=== PATIENT | female | born 1945 | race Caucasian/White ===

== ENCOUNTER 2016-11-08 18:19 | Emergency (ER) | payer OTHER ==
[~2016-11-08] VITALS: Ht 154.9 cm; Wt 60.1 kg
[~2016-11-08 18:19] MED LIST: NXM/40 PO
[2016-11-08 18:22] VITALS: TEMP 37; Ht 154.9 cm; Wt 60.1 kg
--- NOTE | 2016-11-08 19:01 | EMERGENCY ROOM VISIT NOTE ---
History Report prepared by Zander: Emily Ramírez Under the Supervision of: Dr. Yoni Lynn M.D. First contact with patient: 18:31 Chief Complaint: COUGH Stated Complaint: IRREGULAR EKG, REFERRED BY [facility] History of Present Illness The patient is a 71 year old female who presents to the Emergency Room with complaints of a constant cough that began one week ago. Yesterday the patient was coughing violently and was experiencing right-sided chest pain. The pain then radiated to her right flank. The patient reports that she thought that she pulled a muscle, so she put an ice pack on the area. When she went to replace the ice pack, she reported that the pain now radiated to underneath her right axillary. She states that she took aspirin yesterday to try to relive the pain. The patient reports that she went to [facility] today, where she was given four 81 mg aspirins and had an ECG taken. She reports that [facility] was concerned about part of her ECG. The patient notes that she also had an X-Ray taken, but states that it was negative. She states that she has a history of acid reflux. The patient associates 102 degree fever yesterday, and chills intermittently today. The patient reports that she recently traveled by plane from [place] to [place]. Source of History: patient Onset: one week ago Position: other (global) Quality: other (cough) Timing: constant Associated Symptoms: + chest pain, + chills, + fevers Review of Systems All systems have been listed, reviewed, and are negative other than those previously mentioned. Please see Additional Medical History Sheet. Past Medical & Surgical Medical Problems: (1) Acid reflux Family History Cancer Diabetes mellitus FH: seizures Gallbladder disease Heart disease Hypertension Social History Smoking Status: Never Smoker Alcohol Use: none Marital Status: Housing Status: lives with significant other Occupation Status: retired Current/Historical Medications Scheduled Colestipol Hcl (Colestipol Hcl), 1 GM PO DAILY Scheduled PRN Ranitidine Hcl (Zantac), 150 MG PO DAILY PRN for GI Upset Allergies Coded Allergies: Erythromycin (Verified Allergy, Unknown, 07/18/09) Penicillins (Verified Allergy, Unknown, 07/18/09) Sulfa Drugs (Verified Allergy, Unknown, 07/18/09) Physical Exam Vital Signs Date Time Temp Pulse Resp B/P Pulse Ox O2 Delivery O2 Flow Rate FiO2 11/08/16 19:50 88 20 132/67 98 11/08/16 18:22 37.0 102 18 118/62 95 Room Air Physical Exam GENERAL: Patient awake, alert, oriented x 3. Patient follows commands. Patient does not appear toxic. Patient is adequately hydrated and well- nourished. SKIN: No erythema, pallor, cyanosis or rash HEENT: Normal head, pupils equal, reactive to light and accommodation. Increased cerumen left ear. Oral cavity and posterior pharynx appear normal. Neck: Without adenopathy, no neck vein distention. CHEST WALL: Marked tenderness 5-6th ribs wrapping around to mid axillary line to the posterior, palpation reproduces pain complaining of. LUNGS: Clear to auscultation. No wheezes, no rales, no rhonchi. HEART: No murmurs. No gallops. No rubs ABDOMEN: Soft nontender. EXTREMITIES: No signs of trauma. No pedal or pretibial edema. No calf or thigh tenderness. NEUROLOGIC: Cranial nerves II-XII within normal limits. No gross motor sensory function deficits. Medical Decision & Procedures Medications Administered Medications (Trade) Dose Ordered Sig/Trina Route Start Time Stop Time Status Last Admin Dose Admin Albuterol (Ventolin Hfa Inhaler) 2 puffs NOW STAT INH 11/08/16 19:02 11/08/16 19:03 DC 11/08/16 19:02 2 PUFFS ED Course 183: Past medical records reviewed. The patient was evaluated in room A9. A complete history and physical examination was performed. 1852: I reviewed x-rays from [facility]. 1854: I reevaluated the patient and she is resting comfortably. I discussed the exam findings with her and I discussed the treatment plan. She verbalized complete understanding and agreement. She is ready to go home. 1901: Ordered Albuterol 2 puffs INH. Medical Decision Nurses notes reviewed. Medical history sheet reviewed. Differential diagnosis includes but is not limited to: pneumonia, rib fracture, pulled muscle, bronchitis. The patient is here with a 7-10 day cough. She also has pain in the right side of her chest. The patient was seen at [facility] and sent here for a questionable EKG abnormality. EKG was reviewed which revealed a normal sinus rhythm with a slight right ventricular conduction delay without ectopy. That EKG was compared to prior EKG and no changes were found. The patient also has point tenderness over the fifth sixth ribs along the mid axillary line extending posteriorly. This is consistent with a possible rib fracture or at least muscle strain. Chest x-ray from [facility] was also reviewed. No acute infiltrates, pneumothorax or rib fractures were seen. The patient does not need any blood work at this time. The patient was given an albuterol inhaler for relief of the cough. The patient does not one anything for pain. I do not believe the patient requires antibiotics. Blood pressure Screening: Patient was found to have normal blood pressure on screening and does not require follow up. Medication Reconciliation: I attest that I have personally reviewed the patient' s current medication list. Impression Primary Impression: Acute bronchitis Additional Impression: Acute chest wall pain Scribe Attestation The scribe's documentation has been prepared under my direction and personally reviewed by me in its entirety. I confirm that the note above accurately reflects all work, treatment, procedures, and medical decision making performed by me. Departure Information Dispostion Home / Self-Care Referrals No Doctor, Assigned (PCP) Forms HOME CARE DOCUMENTATION FORM, IMPORTANT VISIT INFORMATION Patient Instructions My [facility] Additional Instructions 2 puffs of the inhaler every 4 hours as needed for cough. Tylenol as needed for pain. Follow-up with your family physician within the next 2 weeks. Continue all of your current medications as prescribed. Problem Qualifiers
[2016-11-08] MEDS ORDERED: ALBUTEROL HFA 8 GM INHALER INH STA (19:02)
[2016-11-08 19:50] VITALS: BP 132/67; PULSE 88; O2SAT 98
== END 2016-11-08 19:52 | disposition home or self-care (01) ==
LOC: C.EDB 18:21 → C.EDA 19:52
DX: J20.9 Acute bronchitis, unspecified (principal); R07.89 Other chest pain; K21.9 Gastro-esophageal reflux disease without esophagitis; Z79.899 Other long term (current) drug therapy; Z82.0 Family history of epilepsy and other diseases of the nervous system; Z82.49 Family history of ischemic heart disease and other diseases of the circulatory system; Z83.3 Family history of diabetes mellitus; Z83.79 Family history of other diseases of the digestive system

== ENCOUNTER 2016-11-13 14:34 | Emergency (ER) | payer OTHER ==
[~2016-11-13] VITALS: Ht 154.9 cm; Wt 62.1 kg
[2016-11-13 14:39] VITALS: TEMP 36.4; Ht 154.9 cm; Wt 62.1 kg
--- NOTE | 2016-11-13 16:11 | EMERGENCY ROOM VISIT NOTE ---
History Report prepared by Zander: Randa Amato Under the Supervision of: Dr. Mariel Leon D.O. First contact with patient: 15:42 Chief Complaint: COUGH Stated Complaint: REEVAL FOR COUGHING Nursing Triage Summary: cough since 11/01 when came home from [place], mucus was green but now clear. "constantly producing mucus" this am was first time felt like she had to blow nose and a clot came out. Went to [facility] on Tuesday, took xray and ekg was here Tuesday. Was given an albuterol inhaler which she was unable to use because it burned her throat, was given doxycycline which she has used for 3 days. Became concerned about antibiotic because she read the pamphlet. History of Present Illness The patient is a 71 year old female who presents to the Emergency Room with complaints of a constant cough beginning 2 weeks ago. The patient states that she has had a persistent cough since she got back from [place] 2 weeks ago. She reports that she went to [facility] 5 days ago for right sided chest pain and they sent her here for an abnormal EKG. After being seen here in the ED it was determined that her EKG was unchanged from her previous and that her pain was from her ribs from coughing. The patient reports that she was given an inhaler but she did not continue to use it because it burned her throat. She complains today of continued right sided rib pain, eye watering, headache, and head swelling. She denies any current chest pain. The patient states that she got a call from [facility] and she asked them for antibiotics and she has been taking Doxycycline for 3 days. She notes that she is not sure that she wants to continue Doxycycline because she is concerned that her eyes are watery and slightly blurry and her head is swelling from side effects from the drug. The patient states that she has a history of allergies during this time of year. She notes that talking worsens her symptoms. Source of History: patient Onset: 2 weeks ago Position: other (global) Quality: other (cough) Timing: constant Modifying Factors (Worsening): other (talking) Associated Symptoms: + headache, No chest pain Note: She complains today of continued right sided rib pain, eye watering, and head swelling. Review of Systems See HPI for pertinent positives & negatives. A total of 10 systems reviewed and were otherwise negative. Past Medical & Surgical Medical Problems: (1) Acid reflux Family History Cancer Diabetes mellitus FH: seizures Gallbladder disease Heart disease Hypertension Social History Smoking Status: Never Smoker Alcohol Use: none Marital Status: Housing Status: lives with significant other Occupation Status: retired Current/Historical Medications Scheduled Colestipol Hcl (Colestipol Hcl), 1 GM PO DAILY Guaifenesin-Codeine (Guaifenesin/Codeine), 5-10 ML PO HS Levofloxacin (Levaquin), 750 MG PO DAILY Scheduled PRN Benzonatate (Tessalon Perles), 1 CAP PO TID PRN for Cough Ranitidine Hcl (Zantac), 150 MG PO DAILY PRN for GI Upset Allergies Coded Allergies: Erythromycin (Verified Allergy, Unknown, 11/13/16) Penicillins (Verified Allergy, Unknown, 11/13/16) Sulfa Drugs (Verified Allergy, Unknown, 11/13/16) Physical Exam Vital Signs Date Time Temp Pulse Resp B/P (MAP) Pulse Ox O2 Delivery O2 Flow Rate FiO2 11/13/16 19:59 80 20 97 11/13/16 18:46 83 18 124/56 97 Room Air 11/13/16 16:58 76 16 156/54 100 Room Air 11/13/16 15:27 98 Room Air 11/13/16 14:39 36.4 85 16 128/63 99 Room Air Physical Exam GENERAL: alert, well appearing, well nourished, no distress, non-toxic, dry cough during exam EYE EXAM: normal conjunctiva, PERRL and EOM's grossly intact OROPHARYNX: no exudate, no erythema, lips, buccal mucosa, and tongue normal and mucous membranes are moist NECK: supple, no nuchal rigidity, no adenopathy, non-tender LUNGS: Clear to auscultation. Normal chest wall mechanics HEART: no murmurs, S1 normal and S2 normal ABDOMEN: abdomen soft, non-tender, normo-active bowel sounds, no masses, no rebound or guarding. BACK: Back is symmetrical on inspection and there is no deformity, no midline tenderness, no CVA tenderness. SKIN: no rashes and no bruising UPPER EXTREMITIES: upper extremities are grossly normal. LOWER EXTREMITIES: No pitting edema. NEURO EXAM: Normal sensorium, cranial nerves II-XII grossly intact, normal speech, no gross weakness of arms, no gross weakness of legs. Medical Decision & Procedures ER Provider Diagnostic Interpretation: Radiology results have been interpreted by the radiologist and reviewed by me. CT ANGIOGRAM OF THE CHEST TECHNIQUE: Following the IV administration of 99 cc of Optiray 320, CT angiogram of the chest was performed from the upper abdomen to the thoracic inlet utilizing the pulmonary embolus protocol. Images are reviewed in the axial, sagittal, and coronal planes. 3-D MIPS images are created and assessed. IV contrast was administered without complication. CT DOSE: 211.68 mGy.cm FINDINGS: Thyroid: Imaged portions of the thyroid gland are normal in size and attenuation. A subcentimeter low-density nodule is seen in the left lobe. Thoracic aorta: There is mild atherosclerotic calcification of the thoracic aorta, which is normal in caliber and demonstrates standard 3-vessel arch anatomy. No dissection is seen. Pulmonary vasculature: The pulmonary trunk is normal in caliber. There are no filling defects identified in main, lobar, or segmental pulmonary branches to suggest pulmonary embolus. Heart: The heart is normal in size and configuration, and without pericardial effusion. Lungs and pleural spaces: There is dense airspace consolidation identified in the paramediastinal right upper lobe. No pleural effusion is identified. The left lung appears clear. Scarring versus atelectasis is present both lung bases. The trachea and central airways are clear. Mediastinum: There is no mediastinal lymphadenopathy. Cary: Clear. Axillae: There is no axillary lymphadenopathy. Upper abdomen: Cholecystectomy clips are noted. Partially visualized upper abdominal viscera is within normal limits. Skeletal structures: The skeletal structures are osteopenic. Mild degenerative change is noted throughout the thoracic spine. No lytic or blastic bony lesions are seen. IMPRESSION: 1. There is no evidence of pulmonary embolus in the main, lobar, or segmental pulmonary arteries. 2. There is dense airspace consolidation identified in the paramediastinal right upper lobe. This likely represents pneumonia. Clinical correlation will be required. Follow-up chest CT in 3 months time is recommended to document resolution. Electronically signed by: Radu Rajan M.D. 11/13/2016 6:40 PM Dictated Date/Time: 11/13/2016 6:33 PM SINGLE VIEW CHEST FINDINGS: An AP, portable, upright chest radiograph is compared to study dated . The examination is degraded by portable technique and patient rotation. The cardiomediastinal silhouette is unremarkable. There is mild atherosclerotic calcification of the thoracic aorta. Prominence of the central pulmonary arteries suggests pulmonary artery hypertension. Chronic interstitial thickening is similar to previous. No airspace consolidation, large pleural effusion, or pneumothorax is seen. The skeletal structures are osteopenic. The bony thorax is grossly intact. IMPRESSION: No acute cardiopulmonary abnormality. Electronically signed by: Radu Rajan M.D. 11/13/2016 5:25 PM Dictated Date/Time: 11/13/2016 5:23 PM Laboratory Results 11/13/16 16:44 Red Blood Count 3.82, Mean Corpuscular Volume 95.5, Mean Corpuscular Hemoglobin 32.7, Mean Corpuscular Hemoglobin Concent 34.2, Mean Platelet Volume 9.1, Neutrophils (%) (Auto) 61.3, Lymphocytes (%) (Auto) 29.4, Monocytes (%) (Auto) 7.4, Eosinophils (%) (Auto) 1.2, Basophils (%) (Auto) 0.2, Neutrophils # (Auto) 8.02, Lymphocytes # (Auto) 3.85, Monocytes # (Auto) 0.97, Eosinophils # (Auto) 0.16, Basophils # (Auto) 0.03 11/13/16 16:44 Test 11/13/16 16:44 White Blood Count 13.10 K/uL (4.8-10.8) Red Blood Count 3.82 M/uL (4.2-5.4) Hemoglobin 12.5 g/dL (12.0-16.0) Hematocrit 36.5 % (37-47) Mean Corpuscular Volume 95.5 fL (80-100) Mean Corpuscular Hemoglobin 32.7 pg (25-34) Mean Corpuscular Hemoglobin Concent 34.2 g/dl (32-36) Platelet Count 407 K/uL (130-400) Mean Platelet Volume 9.1 fL (7.4-10.4) Neutrophils (%) (Auto) 61.3 % Lymphocytes (%) (Auto) 29.4 % Monocytes (%) (Auto) 7.4 % Eosinophils (%) (Auto) 1.2 % Basophils (%) (Auto) 0.2 % Neutrophils # (Auto) 8.02 K/uL (1.4-6.5) Lymphocytes # (Auto) 3.85 K/uL (1.2-3.4) Monocytes # (Auto) 0.97 K/uL (0.11-0.59) Eosinophils # (Auto) 0.16 K/uL (0-0.5) Basophils # (Auto) 0.03 K/uL (0-0.2) RDW Standard Deviation 43.9 fL (36.4-46.3) RDW Coefficient of Variation 12.6 % (11.5-14.5) Immature Granulocyte % (Auto) 0.5 % Immature Granulocyte # (Auto) 0.07 K/uL (0.00-0.02) D-Dimer 1660 ug/L FEU (0-500) Anion Gap 9.0 mmol/L (3-11) Est Creatinine Clear Calc Drug Dose 56.1 ml/min Estimated GFR () 87.2 Estimated GFR (Non- 75.2 BUN/Creatinine Ratio 14.3 (10-20) Calcium Level 9.4 mg/dl (8.5-10.1) Troponin I < 0.015 ng/ml (0-0.045) Pro-B-Type Natriuretic Peptide 282 pg/ml (0-900) Laboratory results per my review. Medications Administered Medications (Trade) Dose Ordered Sig/Trina Route Start Time Stop Time Status Last Admin Dose Admin Benzonatate (Tessalon Perles Cap) 100 mg NOW ONCE PO 11/13/16 16:15 11/13/16 16:16 DC 11/13/16 16:55 100 MG Dexamethasone (Decadron Conc Soln) 10 mg NOW STAT PO 11/13/16 16:28 11/13/16 16:29 DC 11/13/16 16:56 10 MG Levofloxacin (Levaquin Tab) 750 mg NOW STAT PO 11/13/16 18:48 11/13/16 18:51 DC 11/13/16 19:34 750 MG Hydrocodone Bit/ Homatropine Methylb (Hycodan Elix Homepack 5/1.5MG/ 5ML) 1 homepack UD ONCE PO 11/13/16 19:45 11/13/16 19:46 DC 11/13/16 19:53 1 HOMEPACK ED Course 1542: The patient was evaluated in room A9. A complete history and physical exam was performed. 1615: Benzonatate 100mg PO. 1628: Decadron Conc Soln 10mg PO. 1814: I reevaluated and updated the patient. 1847: Benadryl Inj 12.5mg IV, Levofloxacin 750mg PO. 1904: Upon reevaluation, the patient is feeling better. I discussed the findings and the treatment plan with the patient. She verbalizes agreement and understanding. The patient was discharged home. Medical Decision Differential diagnosis: Etiologies such as infections, reactive airway disease, pneumonia, pneumothorax , COPD, CHF, cardiac ischemia, pulmonary embolism, musculoskeletal, gastrointestinal, as well as others were entertained. Medication Reconciliation: I attest that I have personally reviewed the patient' s current medication list. Blood pressure screening: Patient was found to have an elevated blood pressure and was referred to their primary doctor for recheck and further treatment. Pt well appearing despite complaints. Several weeks of symptoms, not improving. Pt feels having adr's to doxycycline. Discussed other allergies. No hypoxia, no increased WOB, mild leukocytosis but reassuring VS. Doubt bacteremia/sepsis. Asked cyanide case hardener to help pt establish local PCP for f/u. Discussed sx to watch/return for, pt has home MDI/spacer. No other hx of pulmonary pathology. Doubt cardiac etiology. STable VS in the ER. Mild hypertension noted, discussed f/u with PCP. Doubt contributing to HPI this visit. CURB 65 score 1 - low risk Impression Primary Impression: Pneumonia Additional Impression: Cough Scribe Attestation The scribe's documentation has been prepared under my direction and personally reviewed by me in its entirety. I confirm that the note above accurately reflects all work, treatment, procedures, and medical decision making performed by me. Departure Information Dispostion Home / Self-Care Prescriptions Guaifenesin-Codeine (GUAIFENESIN/CODEINE) 1 Muriel Muriel 5-10 ML PO HS, #1 BTL Prov: Mariel Leon, DO 11/13/16 Benzonatate (Tessalon Perles) 100 Mg Cap 1 CAP PO TID Y for Cough, #20 CAP Prov: Mariel Leon, DO 11/13/16 Levofloxacin (Levaquin) 500 Mg Tab 750 MG PO DAILY for 5 Days, #8 TAB Prov: Mariel Leon, DO 6/3/17 Referrals No Doctor, Assigned (PCP) Patient Instructions My [facility] Additional Instructions Please try to establish a local family doctor. Please take the antibiotics as prescribed. You may use the inhaler, 2 puffs up to every 4 hours as needed for frequent episodes of coughing, or trouble breathing. Please use the cough medications as prescribed. Please drink plenty of water and stay well- hydrated. If you develop any worsening cough, noticed blood in her sputum, have a harder time breathing, develop chest pain or pressure, dizziness, vomiting, fevers, or any other new concerns, please return the emergency room. Problem Qualifiers Primary Impression: Pneumonia Pneumonia type: due to unspecified organism Laterality: right Lung location : upper lobe of lung Qualified Codes: J18.1 - Lobar pneumonia, unspecified organism
[2016-11-13] MEDS ORDERED: DEXAMETHASONE CONC 1 MG/ML 30 ML PO STA ×2 (16:13→16:28)
[2016-11-13] MEDS ORDERED: BENZONATATE 100MG CAP PO ONE (16:15)
[2016-11-13 16:55] LABS: BASO % 0.2 %; BASO ABS # 0.03 K/uL (0-0.2); COMPLETE YES; EOS % 1.2 %; HEMATOCRIT 36.5 % (37-47); IG% 0.5 %; LYMPH % 29.4 %; LYMPH ABS # 3.85 K/uL (1.2-3.4); MEAN CELL VOLUME 95.5 fL (80-100); MEAN CORPUSCULAR HEMOGLOBIN 32.7 pg (25-34); MEAN CORPUSCULAR HGB CONC 34.2 g/dl (32-36); MEAN PLATELET VOLUME 9.1 fL (7.4-10.4); MONO % 7.4 %; NEUT % 61.3 %; PLATELET COUNT 407 K/uL (130-400); RED BLOOD COUNT 3.82 M/uL (4.2-5.4)
[2016-11-13 17:12] LABS: BLOOD UREA NITROGEN 11 mg/dl (7-18); BUN/CREATININE RATIO 14.3 (10-20); CALCIUM 9.4 mg/dl (8.5-10.1); CARBON DIOXIDE 31 mmol/L (21-32); CHLORIDE 101 mmol/L (98-107); GLUCOSE 94 mg/dl (70-99); POTASSIUM 3.2 mmol/L (3.5-5.1); SODIUM 141 mmol/L (136-145)
--- NOTE | 2016-11-13 17:26 | DIAGNOSTIC IMAGING REPORT ---
SINGLE VIEW CHEST CLINICAL HISTORY: Right-sided chest pain. FINDINGS: An AP, portable, upright chest radiograph is compared to study dated . The examination is degraded by portable technique and patient rotation. The cardiomediastinal silhouette is unremarkable. There is mild atherosclerotic calcification of the thoracic aorta. Prominence of the central pulmonary arteries suggests pulmonary artery hypertension. Chronic interstitial thickening is similar to previous. No airspace consolidation, large pleural effusion, or pneumothorax is seen. The skeletal structures are osteopenic. The bony thorax is grossly intact. IMPRESSION: No acute cardiopulmonary abnormality. Electronically signed by: Radu Rajan M.D. 11/13/2016 5:25 PM Dictated Date/Time: 11/13/2016 5:23 PM
[2016-11-13] MEDS ORDERED: SODIUM CHLORIDE 0.9% 1000ML 1,000 ML IV STA (18:20)
--- NOTE | 2016-11-13 18:41 | DIAGNOSTIC IMAGING REPORT ---
CT ANGIOGRAM OF THE CHEST CLINICAL HISTORY: Cough and dyspnea. COMPARISON STUDY: Chest x-ray dated 11/13/2016. Chest CT dated 07/20/09. TECHNIQUE: Following the IV administration of 99 cc of Optiray 320, CT angiogram of the chest was performed from the upper abdomen to the thoracic inlet utilizing the pulmonary embolus protocol. Images are reviewed in the axial, sagittal, and coronal planes. 3-D MIPS images are created and assessed. IV contrast was administered without complication. CT DOSE: 211.68 mGy.cm FINDINGS: Thyroid: Imaged portions of the thyroid gland are normal in size and attenuation. A subcentimeter low-density nodule is seen in the left lobe. Thoracic aorta: There is mild atherosclerotic calcification of the thoracic aorta, which is normal in caliber and demonstrates standard 3-vessel arch anatomy. No dissection is seen. Pulmonary vasculature: The pulmonary trunk is normal in caliber. There are no filling defects identified in main, lobar, or segmental pulmonary branches to suggest pulmonary embolus. Heart: The heart is normal in size and configuration, and without pericardial effusion. Lungs and pleural spaces: There is dense airspace consolidation identified in the paramediastinal right upper lobe. No pleural effusion is identified. The left lung appears clear. Scarring versus atelectasis is present both lung bases. The trachea and central airways are clear. Mediastinum: There is no mediastinal lymphadenopathy. Cary: Clear. Axillae: There is no axillary lymphadenopathy. Upper abdomen: Cholecystectomy clips are noted. Partially visualized upper abdominal viscera is within normal limits. Skeletal structures: The skeletal structures are osteopenic. Mild degenerative change is noted throughout the thoracic spine. No lytic or blastic bony lesions are seen. IMPRESSION: 1. There is no evidence of pulmonary embolus in the main, lobar, or segmental pulmonary arteries. 2. There is dense airspace consolidation identified in the paramediastinal right upper lobe. This likely represents pneumonia. Clinical correlation will be required. Follow-up chest CT in 3 months time is recommended to document resolution. Electronically signed by: Radu Rajan M.D. 11/13/2016 6:40 PM Dictated Date/Time: 11/13/2016 6:33 PM
[2016-11-13] MEDS ORDERED: OPTIRAY 320 IV PRN (18:45)
[2016-11-13 18:46] VITALS: BP 124/56
[2016-11-13] MEDS ORDERED: LEVOFLOXACIN 750 MG TAB PO STA (18:48)
[2016-11-13] MEDS ORDERED: DiphenhydrAMINE HCL 50 MG/ML VIAL IV STA (18:48)
[2016-11-13] MEDS ORDERED: LEVO-366 PO (19:13)
[2016-11-13] MEDS ORDERED: BENZ100C84 PO (19:13)
[2016-11-13] MEDS ORDERED: GUAI100S6 PO (19:13)
[2016-11-13] MEDS ORDERED: COLE1TAB5 PO (19:38)
[2016-11-13] MEDS ORDERED: RANI150T3 PO (19:38)
--- NOTE | 2016-11-13 19:40 | EMERGENCY ROOM VISIT NOTE ---
ED Visit Note The patient had been discharged but it was then realized that her prescriptions could not be filled at her pharmacy. It had become too late in the day. Patient was ordered for a Hycodan cough syrup home pack to use in the interim for her cough complaint. She can fill her prescriptions tomorrow. She was discharged home.
[2016-11-13] MEDS ORDERED: HYCODAN 60ML BOTTLE HOMEPACK PO ONE (19:45)
[2016-11-13 19:59] VITALS: PULSE 80; O2SAT 97
== END 2016-11-13 20:00 | disposition home or self-care (01) ==
LOC: C.EDB 14:35 → C.EDA 20:00
DX: J18.9 Pneumonia, unspecified organism (principal); K21.9 Gastro-esophageal reflux disease without esophagitis; Z88.0 Allergy status to penicillin; Z88.2 Allergy status to sulfonamides; Z88.3 Allergy status to other anti-infective agents; Z80.9 Family history of malignant neoplasm, unspecified; Z83.3 Family history of diabetes mellitus; Z82.0 Family history of epilepsy and other diseases of the nervous system; Z83.79 Family history of other diseases of the digestive system; Z82.49 Family history of ischemic heart disease and other diseases of the circulatory system

== ENCOUNTER → 2016-11-26 | Outpatient (CLI) | payer OTHER ==
[~2016-11-26] MED LIST changes: +BENZ100C84 PO; +COLE1TAB5 PO; +GUAI100S6 PO; -NXM/40 PO; +RANI150T3 PO
[2016-11-26 19:14] LABS: THYROID STIMULATING HORMONE 1.5 uIu/ml (0.300-4.500)
== END | disposition home or self-care (01) ==
LOC: C.LAB 18:22
PROVIDERS: ATTEND Internal Medicine Endocrinology, Diabetes & Metabolism
DX: E04.2 Nontoxic multinodular goiter (principal)

== ENCOUNTER 2017-03-07 11:58 | Emergency (ER) | payer OTHER ==
[~2017-03-07] VITALS: Ht 154.9 cm; Wt 62.0 kg
[2017-03-07 12:08] VITALS: TEMP 36.5
[2017-03-07 12:40] VITALS: Ht 154.9 cm; Wt 62.0 kg
[2017-03-07 12:58] VITALS: O2SAT 97
[2017-03-07 13:33] LABS: BASO % 0.2 %; BASO ABS # 0.02 K/uL (0-0.2); COMPLETE YES; EOS % 0.5 %; IG% 0.3 %; LYMPH % 22.4 %; LYMPH ABS # 2.06 K/uL (1.2-3.4); MEAN CELL VOLUME 95.2 fL (80-100); MEAN CORPUSCULAR HEMOGLOBIN 32.4 pg (25-34); MEAN PLATELET VOLUME 10.4 fL (7.4-10.4); MONO % 9.1 %; NEUT % 67.5 %; PLATELET COUNT 265 K/uL (130-400); RED BLOOD COUNT 4.41 M/uL (4.2-5.4); WHITE BLOOD COUNT 9.21 K/uL (4.8-10.8)
[2017-03-07 13:45] LABS: INR 0.9 (0.9-1.1)
--- NOTE | 2017-03-07 13:54 | DIAGNOSTIC IMAGING REPORT ---
LEFT LOWER EXTREMITY VENOUS DOPPLER HISTORY: Left leg pain. COMPARISON STUDY: None. FINDINGS: There is normal compressibility, flow, and augmentation within the left lower extremity deep venous system. IMPRESSION: No DVT within the left lower extremity. Electronically signed by: Edvin Paris M.D. 03/07/2017 1:53 PM Dictated Date/Time: 03/07/2017 1:52 PM
[2017-03-07 13:56] LABS: CREATININE 0.89 mg/dl (0.60-1.20); POTASSIUM 3.6 mmol/L (3.5-5.1)
[2017-03-07 13:59] LABS: ALB/GLOB RATIO 1.1 (0.9-2)
--- NOTE | 2017-03-07 13:59 | DIAGNOSTIC IMAGING REPORT ---
LEFT KNEE 2 VIEWS HISTORY: left lateral knee pain, no trauma COMPARISON: None. FINDINGS: There is no fracture or dislocation. Soft tissues are unremarkable. No radiopaque foreign bodies. No knee effusion. IMPRESSION: No fractures. Electronically signed by: Edvin Paris M.D. 03/07/2017 1:58 PM Dictated Date/Time: 03/07/2017 1:58 PM
[2017-03-07 14:08] VITALS: BP 116/56
[2017-03-07 14:44] VITALS: PULSE 76; O2SAT 98
--- NOTE | 2017-03-07 15:05 | EMERGENCY ROOM VISIT NOTE ---
History Report prepared by Zander: Bárbara Olivares Under the Supervision of: Dr. Dilip Cordero M.D. First contact with patient: 12:31 Chief Complaint: LEG PAIN,LEG INJURY Stated Complaint: LEFT LEG PAIN BEHIND KNEE History of Present Illness The patient is a 71 year old female who presents to the Emergency Room with complaints of persistent left leg pain that began three days ago. She currently rates her discomfort as a 10/10 in severity. The patient reports pain to touch the area and she states that her pain began suddenly. She reports pain radiating from her popliteal fossa down her left calf. The patient denies any trauma. She reports a history of arthritis. The patient denies any personal or family history of blood clots. She does note that her veins burst easily. The patient reports worsened pain with movement. She states that she has tried taken Aleve without relief of her symptoms. Pt denies prolonged travel, recent surgery or immobilization. Pt denies LOC, headache, fevers, chills, diaphoresis, visual changes, neck pain, chest pain, breathing difficulties, nausea, vomiting, abdominal pain, back pain, melena, hematochezia, urinary symptoms, numbness, weakness, lymphadenopathy, rash, or other complaints. Source of History: patient Onset: three days ago Position: leg (left) Symptom Intensity: 10/10 Quality: other (radiating) Timing: other (persistent) Modifying Factors (Worsening): movement Review of Systems See HPI for pertinent positives and negatives. A total of ten systems were reviewed and were otherwise negative. Past Medical & Surgical Medical Problems: (1) Acid reflux Surgical Problems: (1) S/P appendectomy (2) S/P cholecystectomy Family History Cancer Diabetes mellitus FH: seizures Gallbladder disease Heart disease Hypertension Social History Smoking Status: Never Smoker Alcohol Use: none Marital Status: Housing Status: lives with significant other Occupation Status: retired Current/Historical Medications Scheduled Colestipol Hcl (Colestipol Hcl), 1 GM PO DAILY Allergies Coded Allergies: Erythromycin (Verified Allergy, Unknown, 11/13/16) Penicillins (Verified Allergy, Unknown, 11/13/16) Sulfa Drugs (Verified Allergy, Unknown, 11/13/16) Doxycycline (Unverified Adverse Reaction, Unknown, FELT FAINT, DIZZY, SICK , 03/07/17) Levofloxacin (Unverified Adverse Reaction, Unknown, DIZZY, COULDN'T SEE OUT OF LEFT EYE, FELT SICK, 03/07/17) Physical Exam Vital Signs Date Time Temp Pulse Resp B/P (MAP) Pulse Ox O2 Delivery O2 Flow Rate FiO2 03/07/17 14:44 76 98 03/07/17 14:08 78 16 116/56 98 Room Air 03/07/17 13:02 82 03/07/17 12:58 97 Room Air 03/07/17 12:08 36.5 98 20 134/64 97 Room Air Physical Exam GENERAL: Awake, alert, well-appearing, in no distress HENT: Normocephalic, atraumatic. Oropharynx unremarkable. EYES: Normal conjunctiva. Sclera non-icteric. NECK: Supple. No nuchal rigidity. FROM. No JVD. RESPIRATORY: Clear to auscultation. CARDIAC: Regular rate, normal rhythm. Extremities warm and well perfused. Pulses equal. ABDOMEN: Soft, non-distended. No tenderness to palpation. No rebound or guarding. No masses. RECTAL: Deferred. MUSCULOSKELETAL: Chest examination reveals no tenderness. The back is symmetrical on inspection without obvious abnormality. There is no CVA tenderness to palpation. No joint edema. LOWER EXTREMITIES: Tenderness to posterior and lateral aspects of the left knee. No swelling, no erythema, remainder of the left leg examines normally. Calves are equal size bilaterally and non-tender. No edema. No discoloration. NEURO: Normal sensorium. No sensory or motor deficits noted. SKIN: No rash or jaundice noted. Medical Decision & Procedures ER Provider Diagnostic Interpretation: Radiology results as stated below per my review and radiologist interpretation: LEFT LOWER EXTREMITY VENOUS DOPPLER HISTORY: Left leg pain. COMPARISON STUDY: None. FINDINGS: There is normal compressibility, flow, and augmentation within the left lower extremity deep venous system. IMPRESSION: No DVT within the left lower extremity. Electronically signed by: Edvin Paris M.D. 03/07/2017 1:53 PM Dictated Date/Time: 03/07/2017 1:52 PM LEFT KNEE 2 VIEWS HISTORY: left lateral knee pain, no trauma COMPARISON: None. FINDINGS: There is no fracture or dislocation. Soft tissues are unremarkable. No radiopaque foreign bodies. No knee effusion. IMPRESSION: No fractures. Electronically signed by: Edvin Paris M.D. 03/07/2017 1:58 PM Dictated Date/Time: 03/07/2017 1:58 PM Laboratory Results 03/07/17 12:54 Red Blood Count 4.41, Mean Corpuscular Volume 95.2, Mean Corpuscular Hemoglobin 32.4, Mean Corpuscular Hemoglobin Concent 34.0, Mean Platelet Volume 10.4, Neutrophils (%) (Auto) 67.5, Lymphocytes (%) (Auto) 22.4, Monocytes (%) (Auto) 9.1, Eosinophils (%) (Auto) 0.5, Basophils (%) (Auto) 0.2, Neutrophils # (Auto) 6.21, Lymphocytes # (Auto) 2.06, Monocytes # (Auto) 0.84, Eosinophils # (Auto) 0.05, Basophils # (Auto) 0.02 03/07/17 12:54 Test 03/07/17 12:54 White Blood Count 9.21 K/uL (4.8-10.8) Red Blood Count 4.41 M/uL (4.2-5.4) Hemoglobin 14.3 g/dL (12.0-16.0) Hematocrit 42.0 % (37-47) Mean Corpuscular Volume 95.2 fL (80-100) Mean Corpuscular Hemoglobin 32.4 pg (25-34) Mean Corpuscular Hemoglobin Concent 34.0 g/dl (32-36) Platelet Count 265 K/uL (130-400) Mean Platelet Volume 10.4 fL (7.4-10.4) Neutrophils (%) (Auto) 67.5 % Lymphocytes (%) (Auto) 22.4 % Monocytes (%) (Auto) 9.1 % Eosinophils (%) (Auto) 0.5 % Basophils (%) (Auto) 0.2 % Neutrophils # (Auto) 6.21 K/uL (1.4-6.5) Lymphocytes # (Auto) 2.06 K/uL (1.2-3.4) Monocytes # (Auto) 0.84 K/uL (0.11-0.59) Eosinophils # (Auto) 0.05 K/uL (0-0.5) Basophils # (Auto) 0.02 K/uL (0-0.2) RDW Standard Deviation 43.6 fL (36.4-46.3) RDW Coefficient of Variation 12.6 % (11.5-14.5) Immature Granulocyte % (Auto) 0.3 % Immature Granulocyte # (Auto) 0.03 K/uL (0.00-0.02) Prothrombin Time 10.0 SECONDS (9.0-12.0) Prothromb Time International Ratio 0.9 (0.9-1.1) Activated Partial Thromboplast Time 26.0 SECONDS (21.0-31.0) Partial Thromboplastin Ratio 1.0 Anion Gap 7.0 mmol/L (3-11) Est Creatinine Clear Calc Drug Dose 50.3 ml/min Estimated GFR () 76.6 Estimated GFR (Non- 66.1 BUN/Creatinine Ratio 15.0 (10-20) Calcium Level 9.0 mg/dl (8.5-10.1) Total Bilirubin 0.5 mg/dl (0.2-1) Aspartate Amino Transf (AST/SGOT) 13 U/L (15-37) Alanine Aminotransferase (ALT/SGPT) 17 U/L (12-78) Alkaline Phosphatase 96 U/L (45-117) Total Protein 7.4 gm/dl (6.4-8.2) Albumin 3.9 gm/dl (3.4-5.0) Globulin 3.5 gm/dl (2.5-4.0) Albumin/Globulin Ratio 1.1 (0.9-2) Laboratory results reviewed by mi ED Course 1237: The patient was evaluated in room B5. A complete history and physical exam was performed by the medical student. 1306: The patient was evaluated in room B5. A complete history and physical exam was performed. 1417: I reevaluated the patient and she is resting comfortably. I discussed the exam findings with her and I discussed the treatment plan. She verbalized complete understanding and agreement. She is ready to go home. Medical Decision Triage Nursing notes reviewed and agree them. The patient's history was concerning for swelling and pain in the leg. Differential diagnosis: Etiologies such as DVT, Gupta's cyst, arthritis, joint effusion, infection, trauma, muscular, idiopathic, as well as others were entertained.. Physical examination: The physical examination revealed no signs of infection. Neurovascularly intact. No ligamentous instability. Unable to fully assess meniscus secondary to discomfort with range of motion. ER treatment provided: Patient declined analgesia On reassessment the patient felt better. Diagnostics interpreted by me: The labs revealed an unremarkable CBC and chemistry panel. Imaging studies: X-ray and ultrasound as above By the evaluation outlined above emergent etiologies such as septic joint, trauma, infection, CHF, DVT, as well as others were deemed relatively unlikely. The patient is doing well. She did note that she was pulling a hose the other day and may have tweaked her knee. I suspect this is musculoskeletal. Conservative management was discussed. I gave my usual and customary discussion regarding this issue. The patient and were informed about the findings as listed above. All questions were answered and they were pleased with the treatment. Return instructions were outlined and the patient was discharged in stable condition. Outpatient prescription management: None Referral: The patient was referred back to her primary care physician for follow-up in 2 to 3 days for a recheck of the current condition. Medication Reconcilliation Current Medication List: was personally reviewed by me Blood Pressure Screening Patient's blood pressure: Elevated blood pressure Blood pressure disposition: Elevated BP felt to be situational, Did not require urgent referral Impression Primary Impression: Left knee pain Scribe Attestation The scribe's documentation has been prepared under my direction and personally reviewed by me in its entirety. I confirm that the note above accurately reflects all work, treatment, procedures, and medical decision making performed by me. Departure Information Dispostion Home / Self-Care Referrals Jyoti MALAGON M.D. (PCP) Forms HOME CARE DOCUMENTATION FORM, IMPORTANT VISIT INFORMATION Patient Instructions My [facility] [email or web address] Additional Instructions Continue her Naprosyn twice daily as needed. Take with food. Avoid using more than three consecutive days without physician direction. Prolonged inappropriate use can lead to stomach upset or ulcers. (AND/OR) Acetaminophen(Tylenol) may be used for fever or pain. Use 1000mg every six hours as needed. Avoid using more than 4000mg in a 24 hour period. Warm compresses for 20 minutes at a time four times daily for 2-3 days. Rest and elevate your injury. Return to the ER immediately for any numbness, tingling, severe pain, extreme swelling in the extremity or as needed. Follow-up with your primary care physician in 2 to 3 days for a recheck of your current condition.
== END 2017-03-07 14:52 | disposition home or self-care (01) ==
LOC: C.EDB 12:00
DX: M25.562 Pain in left knee (principal); M19.90 Unspecified osteoarthritis, unspecified site; K21.9 Gastro-esophageal reflux disease without esophagitis; Z83.3 Family history of diabetes mellitus; Z82.0 Family history of epilepsy and other diseases of the nervous system; Z82.49 Family history of ischemic heart disease and other diseases of the circulatory system